=== PATIENT | male | born 1990 | race Caucasian/White ===

== ENCOUNTER 2016-06-09 20:24 | Emergency (ER) | payer MEDICAID, OTHER ==
--- NOTE | 2016-06-09 20:45 | Emergency Department Record ---
History of Present Illness - General Chief Complaint: Fall Injury Stated Complaint: FALL/L LEG INJURY Time Seen by Provider: 06/09/16 20:38 Source: Patient Mode of Arrival: Ambulatory Limitations: No limitations - History of Present Illness Initial Comments: 25 yo male presents to ED with a CC of left lower extremity ankle swelling, pain , and bruising following a fall down stairs approximately 1 week ago. Patient denies other injury, and denies health problems at his baseline. 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 Fall Witnessed: No Place Fall Occurred: Home Loss of Consciousness: None Prolonged Down Time?: No Symptoms Prior to Fall: None Location - Extremities: Left: Lower Leg Severity: Mild Severity scale (1-10): 3 Context: Other Associated Symptoms: Denies - Car Coma Scale Eye Response: (4) Open spontaneously Motor Response: (6) Obeys commands Verbal Response: (5) Oriented Car Total: 15 - Related Data Allergies Allergy/AdvReac Type Severity Reaction Status Date / Time No Known Drug Allergies Allergy Verified 06/09/16 20:36 Travel Screening - Travel/Exposure Within Last 30 Days Have you traveled within the last 30 days?: No - Travel/Exposure Within Last Year Have you traveled outside the [place] in the last year?: No - Additonal Travel Details Have you been exposed to anyone with a communicable illness?: No - Travel Symptoms Symptom Screening: None Review of Systems Constitutional: Denies: Chills, Fever, Malaise, Night sweats Eyes: Denies: Eye discharge, Eye pain ENT: Denies: Congestion, Ear pain Respiratory: Denies: Cough, Dyspnea Cardiovascular: Denies: Dyspnea on exertion, Palpitations Endocrine: Denies: Fatigue, Heat or cold intolerance Gastrointestinal: Denies: Abdominal pain, Nausea, Vomiting Genitourinary: Denies: Incontinence, Retention Musculoskeletal: Reports: Arthralgia, Joint swelling. Denies: Back pain, Gout Skin: Reports: Bruising. Denies: Change in color Neurological: Denies: Abnormal gait, Headache, Seizure Psychiatric: Denies: Anxiety Hematological/Lymphatic: Denies: Anemia, Blood Clots Past Medical History - SOCIAL HISTORY Smoking Status: Never smoker Alcohol Use: None Drug Use: None - RESPIRATORY Hx Respiratory Disorders: No - CARDIOVASCULAR Hx Cardio Disorders: No - NEURO Hx Neuro Disorders: No - GI Hx GI Disorders: No - Hx Genitourinary Disorders: No - ENDOCRINE Hx Endocrine Disorders: No - MUSCULOSKELETAL Hx Musculoskeletal Disorders: No - PSYCH Hx Psych Problems: No - HEMATOLOGY/ONCOLOGY Hx Hematology/Oncology Disorders: No Family Medical History Any Significant Family History?: No Physical Exam - General General Appearance: Alert, Oriented x3, Cooperative, No acute distress, Other ( ambulates with steady gait) Limitations: No limitations - Head Head exam: Atraumatic, Normocephalic, Normal inspection Head exam detail: negative: Abrasion, Contusion, Apple's sign, General tenderness, Hematoma, Laceration - Eye Eye exam: Normal appearance. negative: Conjunctival injection, Periorbital swelling, Periorbital tenderness, Scleral icterus - ENT Ear exam: negative: Auricular hematoma, Auricular trauma Nasal Exam: negative: Active bleeding, Discharge, Dried blood, Foreign body Mouth exam: negative: Drooling, Laceration, Muffled voice, Tongue elevation - Neck Neck exam: Normal inspection. negative: Meningismus, Tenderness - Respiratory Respiratory exam: Normal lung sounds bilaterally. negative: Rales, Respiratory distress, Rhonchi, Stridor - Cardiovascular Cardiovascular Exam: Regular rate, Normal rhythm, Normal heart sounds Peripheral Pulses: 3+: Dorsalis Pedis (L) - GI/Abdominal GI/Abdominal exam: Soft. negative: Rebound, Rigid, Tenderness - Rectal Rectal exam: Deferred - exam: Deferred - Extremities Extremities exam: Full ROM, Tenderness, Other (Mild STS to the left distal, anterior lower extremity with mild ecchymosis present, strong DPP present, no pain over the lateral/medial ankle or foot, intact dorsiflexion/plantar flexion on examination). negative: Calf tenderness, Pedal edema - Back Back exam: Denies: CVA tenderness (R), CVA tenderness (L) - Neurological Neurological exam: Alert, Normal gait, Oriented X3 - Psychiatric Psychiatric exam: Normal affect, Normal mood - Skin Skin exam: Normal color. negative: Abrasion Type of lesion: negative: abrasion Course Vital Signs 06/09/16 20:31 Temperature 98.1 F Pulse Rate 88 Respiratory 20 Rate Blood Pressure 145/85 Pulse Ox 97 - Reevaluation(s) Reevaluation #1: 06/09/16 21:08 Lower extremity: STS distal anterior LE, no fracture or dislocation noted Left Ankle: No fracture or dislocation, STS anteriorly noted. Patient was updated on all results, ambulates with steady gait, and appears stable for discharge at this time. Given the injury mechanism and lack of any calf pain or swelling to lower extremity above the injury site anteriorly, DVT is not suspected. Disposition Disposition: Discharge Clinical Impression: Contusion of lower limb, left Qualifiers: Encounter type: initial encounter Qualified Code(s): S80.12XA - Contusion of left lower leg, initial encounter Disposition: Home, Self-Care Condition: (2) Stable Instructions: Contusion in Adults (ED) Additional Instructions: Return to ED if your symptoms worsen or if you have any concerns. Ibuprofen as directed. Follow-up with your family doctor in 3-5 days as directed. Forms: Patient Portal Access Time of Disposition: 21:10
--- NOTE | 2016-06-11 14:50 | RADIOLOGY REPORT ---
EXAM: LEFT ANKLE, THREE VIEWS HISTORY: PAIN AND SWELLING SINCE FALLING DOWN STAIRS ONE WEEK AGO. TECHNIQUE: AP, oblique, and lateral views of the left ankle were obtained. Comparison: Same day radiographic examination of the left lower leg. Left foot dated 10/01/10. Encounter: Initial. FINDINGS: There is normal bone mineralization. No acute fracture, dislocation , or destructive bone lesion is seen. The ankle mortise joint appears symmetric. There is mild diffuse soft tissue swelling within the lower leg and ankle. IMPRESSION: 1. NO ACUTE FRACTURE NOR DISLOCATION. 2. DIFFUSE SOFT TISSUE SWELLING. JOB NUMBER: [id number] [facility]
--- NOTE | 2016-06-11 14:57 | RADIOLOGY REPORT ---
EXAM: LEFT LOWER LEG, TWO VIEWS HISTORY: FALL. TECHNIQUE: AP and lateral views of the left lower leg were obtained. Comparison: Same day radiographic examination of the left ankle. Encounter: Initial. FINDINGS: There is normal bone mineralization. No acute fracture, dislocation , or destructive bone lesion is seen. The articular relations are grossly maintained. There is soft tissue swelling involving the lower leg and ankle diffusely. IMPRESSION: NO ACUTE FRACTURE NOR DISLOCATION. DIFFUSE SOFT TISSUE SWELLING INVOLVING THE LOWER LEG AND ANKLE. JOB NUMBER: [id number] [facility]
== END 2016-06-09 21:14 | disposition home or self-care (01) ==
LOC: ER 20:24
DX: S80.12XA Contusion of left lower leg, initial encounter (principal); M25.472 Effusion, left ankle; W10.9XXA Fall (on) (from) unspecified stairs and steps, initial encounter; Y92.009 Unspecified place in unspecified non-institutional (private) residence as the place of occurrence of the external cause
CPT/HCPCS: 99283